=== PATIENT | male | born 1955 | race African-American/Black ===

== ENCOUNTER 2017-07-20 19:26 | Observation (INO) | payer MEDICAID, MEDICARE, OTHER ==
[~2017-07-20] VITALS: Ht 182.9 cm; Wt 72.1 kg
[~2017-07-20 19:26] MED LIST: ATEN-104 PO; NITR0.4T; OXYC-302 PO; SIMV20TA3; VIT1TABL67
[2017-07-20] MEDS ORDERED: SODIUM CHLORIDE FLUSH 10ML SYR IVF ONE (20:30)
[2017-07-20] MEDS ORDERED: NITROGLYCERIN SINGLE TAB 0.4 MG SL PRN (20:30)
[2017-07-20] MEDS ORDERED: ASPIRIN 81 MG TABLET CHEW PO ONE (20:30)
[2017-07-20 20:32] LABS: HEMATOCRIT 38.4 % (39.2-51.8); HEMOGLOBIN 12.4 g/dL (13.7-18.0); WHITE BLOOD COUNT 7.6 x10^3/uL (3.4-10)
[2017-07-20 20:34] LABS: ASPARTATE AMINO TRANSFERASE 15 U/L (15-37); BLOOD UREA NITROGEN 13 mg/dL (7-18)
[2017-07-20 20:40] LABS: IS PT STATUS REG ER OR PRE ER? YES
[2017-07-20] MEDS ORDERED: NITROGLYCERIN SINGLE TAB 0.4 MG SL ONE (20:42)
[2017-07-20] MEDS ORDERED: OXYcodone/APAP 5/325MG TABLET PO ONE (23:30)
[2017-07-20] MEDS ORDERED: OXYcodone/APAP 5/325MG TABLET ONE (23:55)
[2017-07-21] MEDS ORDERED: ONDANSETRON ODT 4 MG PO PRN (00:30)
[2017-07-21] MEDS ORDERED: LABETALOL 5MG/ML, 20ML IVPush PRN (00:30)
[2017-07-21] MEDS ORDERED: NITROGLYCERIN 0.4 MG BOTTLE (25 TABS) SL PRN (00:30)
[2017-07-21] MEDS ORDERED: DOCUSATE 100 MG CAPSULE PO PRN (00:30)
[2017-07-21] MEDS ORDERED: TEMAZEPAM 15 MG CAPSULE PO PRN (00:30)
[2017-07-21] MEDS ORDERED: OMNIPAQUE 350 MG/ML, 100ML BOTTLE ONE (01:05)
[2017-07-21 02:00] VITALS: BP 111/70
[2017-07-21] MEDS: HEPARIN 5,000 UNITS/ML, 1ML SQ SCH ×2 (02:22→10:00)
[2017-07-21 02:30] LABS: IS PT STATUS REG ER OR PRE ER? NO
[2017-07-21] MEDS ORDERED: TAMS0.4C2 PO (04:56)
[2017-07-21] MEDS ORDERED: ATOR10TA9 PO (04:56)
[2017-07-21] MEDS ORDERED: CYCL5TAB PO (04:56)
[2017-07-21] MEDS ORDERED: OXYcodone/APAP 5/325MG TABLET PO PRN (08:00)
[2017-07-21 08:12] VITALS: BP 106/68
[2017-07-21 08:17] LABS: IS PT STATUS REG ER OR PRE ER? NO
[2017-07-21] MEDS ORDERED: ATENOLOL 50 MG TABLET PO SCH (09:00)
[2017-07-21] MEDS ORDERED: POTASSIUM CHLORIDE 20 MEQ TAB.ER.PRT PO ONE (10:00)
[2017-07-21 14:00] VITALS: BP 124/72
[2017-07-21] MEDS ORDERED: NITR12SP PO (14:10)
== END 2017-07-21 15:15 | disposition home or self-care (01) ==
LOC: ED 19:56 → EDIP 23:53 → INTOOBSV 23:53 → 5SO 07-21 01:50
PROVIDERS: ADMIT Family Medicine; ATTEND Family Medicine
DX: R07.9 Chest pain, unspecified (principal); E87.6 Hypokalemia; J44.9 Chronic obstructive pulmonary disease, unspecified; R79.1 Abnormal coagulation profile; E78.00 Pure hypercholesterolemia, unspecified; E78.5 Hyperlipidemia, unspecified; F17.200 Nicotine dependence, unspecified, uncomplicated; I10 Essential (primary) hypertension; I21.3 ST elevation (STEMI) myocardial infarction of unspecified site; I25.10 Atherosclerotic heart disease of native coronary artery without angina pectoris; I25.2 Old myocardial infarction; Z90.49 Acquired absence of other specified parts of digestive tract; Z82.49 Family history of ischemic heart disease and other diseases of the circulatory system
CPT/HCPCS: 36415; 71010; 71275; 80053; 83690; 84484; 85025; 85379; 85610; 85730; 93005; 93306; 96372; 99285; G0378; J1644; Q9967

== ENCOUNTER 2017-08-14 16:31 | Emergency (ER) | payer MEDICAID ==
[~2017-08-14] VITALS: Ht 182.9 cm; Wt 75.1 kg
[~2017-08-14 16:31] MED LIST changes: +ATOR10TA9 PO; +CYCL5TAB PO; +NITR12SP PO; +TAMS0.4C2 PO
[2017-08-14 16:32] VITALS: BP 132/80
[2017-08-14] MEDS ORDERED: ALPR1TAB2 PO (16:58)
== END 2017-08-14 17:49 | disposition home or self-care (01) ==
LOC: ED 17:43
DX: M51.36 Other intervertebral disc degeneration, lumbar region (principal); M54.6 Pain in thoracic spine; I10 Essential (primary) hypertension; I25.2 Old myocardial infarction; E78.00 Pure hypercholesterolemia, unspecified
CPT/HCPCS: 72110; 99284

== ENCOUNTER 2017-08-19 16:48 | Emergency (ER) | payer MEDICARE, MEDICAID ==
[~2017-08-19] VITALS: Ht 182.9 cm; Wt 75.7 kg
[~2017-08-19 16:48] MED LIST changes: +ALPR1TAB2 PO
[2017-08-19 16:50] VITALS: BP 118/81
[2017-08-19] MEDS ORDERED: OXYcodone/APAP 5/325MG TABLET PO ONE (17:00)
[2017-08-19] MEDS ORDERED: KETOROLAC 30 MG/1 ML IM ONE (18:00)
[2017-08-19] MEDS ORDERED: KETOROLAC 30 MG/1 ML ONE (18:03)
== END 2017-08-19 18:29 | disposition home or self-care (01) ==
LOC: ED 18:00
DX: S39.012A Strain of muscle, fascia and tendon of lower back, initial encounter (principal); I10 Essential (primary) hypertension; G89.29 Other chronic pain; M54.9 Dorsalgia, unspecified; E78.00 Pure hypercholesterolemia, unspecified; Z87.891 Personal history of nicotine dependence; X58.XXXA Exposure to other specified factors, initial encounter; Y93.89 Activity, other specified; Y99.8 Other external cause status; Y92.89 Other specified places as the place of occurrence of the external cause
CPT/HCPCS: 96372; 99283; J1885

== ENCOUNTER 2017-09-16 23:19 | Emergency (ER) | payer MEDICAID ==
[~2017-09-16] VITALS: Ht 170.2 cm; Wt 71.9 kg
[2017-09-16 23:21] VITALS: BP 136/77
[2017-09-16] MEDS ORDERED: TRAM50TA2 PO (23:57)
[2017-09-17] MEDS ORDERED: IBUPROFEN 200 MG TABLET PO ONE (01:00)
[2017-09-17] MEDS ORDERED: IBUPROFEN 200 MG TABLET ONE (01:01)
== END 2017-09-17 01:13 | disposition home or self-care (01) ==
LOC: ED 23:59
DX: S50.02XA Contusion of left elbow, initial encounter (principal); G89.11 Acute pain due to trauma; X58.XXXA Exposure to other specified factors, initial encounter; Y93.89 Activity, other specified; Y92.89 Other specified places as the place of occurrence of the external cause; Y99.8 Other external cause status
CPT/HCPCS: 99284

== ENCOUNTER → 2017-09-18 | Outpatient (CLI) | payer MEDICAID, MEDICARE ==
[~2017-09-18] MED LIST changes: +TRAM50TA2 PO
== END | disposition home or self-care (01) ==
LOC: RAD 16:17
PROVIDERS: ATTEND Physical Medicine & Rehabilitation
DX: M51.16 Intervertebral disc disorders with radiculopathy, lumbar region (principal); M51.27 Other intervertebral disc displacement, lumbosacral region; M47.896 Other spondylosis, lumbar region; M47.897 Other spondylosis, lumbosacral region; M48.061 Spinal stenosis, lumbar region without neurogenic claudication; M48.07 Spinal stenosis, lumbosacral region; M79.604 Pain in right leg
CPT/HCPCS: 72148

== ENCOUNTER 2018-07-23 18:05 | Emergency (ER) | payer MEDICAID ==
[~2018-07-23] VITALS: Ht 182.9 cm; Wt 70.0 kg
[2018-07-23 18:13] VITALS: BP 121/71
[2018-07-23] MEDS ORDERED: LIDOCAINE-MPF 1%, 5ML INFIL ONE (18:30)
[2018-07-23] MEDS ORDERED: DIPH,PERTUSS(ACELL),TET VAC/PF 0.5 ML IM-VACC ONE ×2 (18:30)
[2018-07-23] MEDS ORDERED: LIDOCAINE-MPF 1%, 5ML ONE (18:30)
[2018-07-23] MEDS ORDERED: BACITRACIN ZINC OINT 500U/GM, 0.9 GM ONE (19:10)
== END 2018-07-23 19:21 | disposition home or self-care (01) ==
LOC: ED 19:15
DX: S61.210A Laceration without foreign body of right index finger without damage to nail, initial encounter (principal); G89.29 Other chronic pain; I25.2 Old myocardial infarction; E78.00 Pure hypercholesterolemia, unspecified; W26.0XXA Contact with knife, initial encounter; Y93.89 Activity, other specified; Y92.009 Unspecified place in unspecified non-institutional (private) residence as the place of occurrence of the external cause; Y99.8 Other external cause status
CPT/HCPCS: 90471; 90715; 99284

== ENCOUNTER 2018-07-28 12:23 | Emergency (ER) | payer MEDICAID, MEDICARE ==
[~2018-07-28] VITALS: Ht 182.9 cm; Wt 69.4 kg
[2018-07-28 12:42] VITALS: BP 113/73
[2018-07-28 14:15] LABS: MICROSCOPIC AUTO
== END 2018-07-28 15:24 | disposition home or self-care (01) ==
LOC: ED 14:24
DX: S80.02XA Contusion of left knee, initial encounter (principal); R31.29 Other microscopic hematuria; I10 Essential (primary) hypertension; E78.00 Pure hypercholesterolemia, unspecified; I25.2 Old myocardial infarction; F17.200 Nicotine dependence, unspecified, uncomplicated; D57.3 Sickle-cell trait; X58.XXXA Exposure to other specified factors, initial encounter; Y93.89 Activity, other specified; Y92.89 Other specified places as the place of occurrence of the external cause; Y99.8 Other external cause status
CPT/HCPCS: 81001; 99285

== ENCOUNTER 2018-10-27 15:34 | Emergency (ER) | payer MEDICARE, MEDICAID ==
[~2018-10-27] VITALS: Ht 182.9 cm; Wt 72.8 kg
[2018-10-27 15:42] VITALS: BP 119/63
== END 2018-10-27 16:52 | disposition home or self-care (01) ==
LOC: ED 16:15
DX: J06.9 Acute upper respiratory infection, unspecified (principal); I25.2 Old myocardial infarction; I10 Essential (primary) hypertension; E78.00 Pure hypercholesterolemia, unspecified
CPT/HCPCS: 71046; 93005; 99283

== ENCOUNTER 2018-11-17 02:19 | Emergency (ER) | payer MEDICARE, MEDICAID ==
[~2018-11-17] VITALS: Ht 182.9 cm; Wt 73.6 kg
[2018-11-17 02:35] VITALS: BP 114/71
[2018-11-17] MEDS ORDERED: OXYcodone/APAP 10/325MG TABLET PO ONE (03:00)
[2018-11-17] MEDS ORDERED: KETOROLAC 30 MG/1 ML IM ONE (03:00)
[2018-11-17] MEDS ORDERED: KETOROLAC 30 MG/1 ML ONE (03:05)
[2018-11-17] MEDS ORDERED: OXYcodone/APAP 10/325MG TABLET ONE (03:06)
== END 2018-11-17 04:16 | disposition home or self-care (01) ==
LOC: ED 04:10
DX: G89.29 Other chronic pain (principal); M54.5 Low back pain; E78.00 Pure hypercholesterolemia, unspecified; I10 Essential (primary) hypertension; F17.200 Nicotine dependence, unspecified, uncomplicated
CPT/HCPCS: 96372; 99283; J1885

== ENCOUNTER 2018-11-22 00:20 | Emergency (ER) | payer MEDICARE, MEDICAID ==
[~2018-11-22] VITALS: Ht 182.9 cm; Wt 73.6 kg
[2018-11-22 00:21] VITALS: BP 125/76
[2018-11-22] MEDS ORDERED: METHOCARBAMOL 750 MG TABLET ONE (00:52)
[2018-11-22] MEDS ORDERED: KETOROLAC 30 MG/1 ML ONE (00:52)
[2018-11-22] MEDS ORDERED: OXYcodone/APAP 5/325MG TABLET ONE (00:53)
[2018-11-22] MEDS ORDERED: OXYcodone/APAP 5/325MG TABLET PO ONE (01:00)
[2018-11-22] MEDS ORDERED: KETOROLAC 30 MG/1 ML IM ONE (01:00)
[2018-11-22] MEDS ORDERED: METHOCARBAMOL 750 MG TABLET PO ONE (01:00)
[2018-11-22] MEDS ORDERED: SERT100T5 PO (01:08)
[2018-11-22] MEDS ORDERED: GABA300C PO (01:08)
[2018-11-22] MEDS ORDERED: CYCL5TAB PO (01:08)
[2018-11-22] MEDS ORDERED: OXYC5CAP2 PO (01:08)
[2018-11-22] MEDS ORDERED: TIZA4TAB PO (01:08)
[2018-11-22] MEDS ORDERED: OXYC-307 PO (01:08)
== END 2018-11-22 01:46 | disposition home or self-care (01) ==
LOC: ED 00:44
DX: S39.012A Strain of muscle, fascia and tendon of lower back, initial encounter (principal); M51.36 Other intervertebral disc degeneration, lumbar region; E78.00 Pure hypercholesterolemia, unspecified; I10 Essential (primary) hypertension; I25.2 Old myocardial infarction; F17.200 Nicotine dependence, unspecified, uncomplicated; Z88.6 Allergy status to analgesic agent; X58.XXXA Exposure to other specified factors, initial encounter; Y93.89 Activity, other specified; Y92.89 Other specified places as the place of occurrence of the external cause; Y99.8 Other external cause status
CPT/HCPCS: 96372; 99283; J1885

== ENCOUNTER 2018-12-01 20:22 | Emergency (ER) | payer MEDICARE, MEDICAID ==
[~2018-12-01] VITALS: Ht 185.4 cm; Wt 80.0 kg
[~2018-12-01 20:22] MED LIST changes: +GABA300C PO; +OXYC-307 PO; +OXYC5CAP2 PO; +SERT100T5 PO; +TIZA4TAB PO
--- NOTE | 2018-12-01 21:13 | NUR ---
PT HERE FOR COUGH AND CHEST PAIN WITH CONGESTION. PT SAYS HE HAS HAD COUGH FOR AWHILE. COUGH IS DRY AND NOT PRODUCTIVE. VSS. LAB AT BEDSIDE. CALL LIGHT IN REACH
[2018-12-01 21:20] LABS: BASOPHILS # (AUTO) 0.07 x10^3/uL (0-0.1); BASOPHILS % (AUTO) 1 % (0-1); EOSINOPHILS # (AUTO) 0.41 x10^3/uL (0-0.4); EOSINOPHILS % (AUTO) 5 % (1-7); LYMPHOCYTES # (AUTO) 2.94 x10^3/uL (1-3.4); LYMPHOCYTES % (AUTO) 34 % (22-44); MD NO; MEAN CORPUSCULAR HEMOGLOBIN 26.4 pg (27.5-34.5); MEAN CORPUSCULAR HGB CONC 32.6 g/dL (33.2-36.2); MEAN CORPUSCULAR VOLUME 81.1 fL (81-97); MEAN PLATELET VOLUME 7.9 fL (7.4-10.4); MONOCYTES # (AUTO) 0.61 x10^3/uL (0.2-0.8); MONOCYTES % (AUTO) 7 % (2-9); NEUTROPHILS # (AUTO) 4.74 x10^3/uL (1.8-6.8); NEUTROPHILS % (AUTO) 54 % (42-75); PLATELET COUNT 309 x10^3/uL (130-400); RED BLOOD COUNT 5.38 x10^6/uL (4.38-5.82); RED CELL DISTRIBUTION WIDTH 16.9 % (9.4-14.8)
[2018-12-01 21:34] LABS: ALANINE AMINOTRANSFERASE 13 U/L (12-78); ALBUMIN 3.3 g/dL (3.4-5.0); ANION GAP 7 mmol/L (5-15); CALCIUM 8.6 mg/dL (8.5-10.1); CHLORIDE 111 mmol/L (98-107); CREATININE 1.02 mg/dL (0.7-1.3)
[2018-12-01 21:39] LABS: ALKALINE PHOSPHATASE 106 U/L (45-117); BILIRUBIN,TOTAL 0.4 mg/dL (0.2-1.0); TROPONIN I < 0.015 ng/mL (0.000-0.045)
[2018-12-01 21:58] VITALS: BP 115/72
--- NOTE | 2018-12-01 21:59 | NUR ---
Patient given discharge instructions and they have confirmed that they understand the instructions. Patient ambulatory with steady gait.
== END 2018-12-01 22:01 | disposition home or self-care (01) ==
LOC: ED 21:45
DX: J20.9 Acute bronchitis, unspecified (principal); I10 Essential (primary) hypertension; I25.2 Old myocardial infarction
CPT/HCPCS: 36415; 71045; 80053; 84484; 85025; 93005; 99284

== ENCOUNTER 2019-05-02 15:05 | Emergency (ER) | payer MEDICARE, MEDICAID ==
[~2019-05-02] VITALS: Ht 182.9 cm; Wt 72.0 kg
[~2019-05-02 15:05] MED LIST changes: -NITR0.4T; +NITR0.4T41; +SERT100T32 PO; -SERT100T5 PO
[2019-05-02 15:11] VITALS: BP 117/74
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
--- NOTE | 2019-05-02 16:11 | NUR ---
PT RESTING ON GURNEY. PT CLOSES DOOR TO TALK ON CELL PHONE. NO ACUTE DISTRESS NOTED.
--- NOTE | 2019-05-02 16:42 | NUR ---
Patient/Caregiver given discharge instructions and they have confirmed that they understand the instructions. Patient ambulatory with steady gait. PT LEFT WITH ALL PERSONAL BELONGINGS.
== END 2019-05-02 16:44 | disposition home or self-care (01) ==
LOC: ED 16:33
DX: S61.439A Puncture wound without foreign body of unspecified hand, initial encounter (principal); I10 Essential (primary) hypertension; J45.909 Unspecified asthma, uncomplicated; I25.2 Old myocardial infarction; E78.00 Pure hypercholesterolemia, unspecified; F17.200 Nicotine dependence, unspecified, uncomplicated; W46.0XXA Contact with hypodermic needle, initial encounter; Y93.89 Activity, other specified; Y92.89 Other specified places as the place of occurrence of the external cause; Y99.8 Other external cause status
CPT/HCPCS: 36415; 86705; 86706; 86803; 87340; 87806; 99283; G0475

== ENCOUNTER 2019-07-20 13:16 | Emergency (ER) | payer MEDICARE, MEDICAID ==
[~2019-07-20] VITALS: Ht 182.9 cm; Wt 73.9 kg
[2019-07-20 13:39] VITALS: BP 104/66
== END 2019-07-20 14:49 | disposition home or self-care (01) ==
LOC: ED 14:48
DX: S90.32XA Contusion of left foot, initial encounter (principal); I25.2 Old myocardial infarction; E78.00 Pure hypercholesterolemia, unspecified; I10 Essential (primary) hypertension; G89.29 Other chronic pain
CPT/HCPCS: 99283

== ENCOUNTER 2019-11-04 20:33 | Emergency (ER) | payer MEDICARE, MEDICAID ==
[~2019-11-04] VITALS: Ht 182.9 cm; Wt 80.0 kg
[~2019-11-04 20:33] MED LIST changes: -TIZA4TAB PO; +TIZA4TAB2 PO
[2019-11-04 20:43] VITALS: BP 133/73
[2019-11-04] MEDS ORDERED: KETOROLAC 30 MG/1 ML ONE (21:10)
[2019-11-04] MEDS ORDERED: KETOROLAC 30 MG/1 ML IM ONE (21:30)
== END 2019-11-04 21:31 | disposition home or self-care (01) ==
LOC: ED 21:00
DX: M54.5 Low back pain (principal); G89.29 Other chronic pain; R05 Cough; I10 Essential (primary) hypertension; J45.909 Unspecified asthma, uncomplicated; I25.2 Old myocardial infarction; F17.210 Nicotine dependence, cigarettes, uncomplicated
CPT/HCPCS: 71045; 96372; 99283; J1885

== ENCOUNTER 2019-12-13 11:35 | Emergency (ER) | payer MEDICAID, MEDICARE ==
[~2019-12-13] VITALS: Ht 182.9 cm; Wt 79.2 kg
[2019-12-13 11:50] VITALS: BP 123/72
[2019-12-13] MEDS ORDERED: DEXAMETHASONE 4 MG TABLET ONE (12:14)
[2019-12-13] MEDS ORDERED: ALBUTEROL/IPRATROPIUM 2.5MG/0.5MG, 3 ML ONE ×2 (12:30→12:42)
[2019-12-13] MEDS ORDERED: DEXAMETHASONE 4 MG TABLET PO ONE (12:30)
[2019-12-13] MEDS ORDERED: ALBUTEROL/IPRATROPIUM 2.5MG/0.5MG, 3 ML NPPB ONE (12:30)
--- NOTE | 2019-12-13 13:08 | NUR ---
breathing tx completed, pt reports improvement of sx s/p tx. pt a&o, resps even and unlabored, nadn. pt tolerating po's well with no s/sx aspiration. pt given dc instructions and script, educated regarding dc rx for zithromax and albuterol. pt amb to dc desk with steady gait, nadn at dc.
== END 2019-12-13 13:09 | disposition home or self-care (01) ==
LOC: ED 12:25
DX: J06.9 Acute upper respiratory infection, unspecified (principal); I10 Essential (primary) hypertension; J45.909 Unspecified asthma, uncomplicated; I25.2 Old myocardial infarction; F17.200 Nicotine dependence, unspecified, uncomplicated; G89.29 Other chronic pain
CPT/HCPCS: 71046; 94640; 99283; J7620

== ENCOUNTER 2020-01-06 12:06 | Outpatient (CLI) | payer MEDICARE, MEDICAID ==
[~2020-01-06 12:06] MED LIST changes: +SIMV20TA19; -SIMV20TA3
[2020-01-06 12:21] LABS: BASOPHILS # (AUTO) 0.05 x10^3/uL (0-0.1); BASOPHILS % (AUTO) 1 % (0-1); EOSINOPHILS # (AUTO) 0.51 x10^3/uL (0-0.4); EOSINOPHILS % (AUTO) 7 % (1-7); LYMPHOCYTES # (AUTO) 2.71 x10^3/uL (1-3.4); LYMPHOCYTES % (AUTO) 35 % (22-44); MD NO; MEAN CORPUSCULAR HEMOGLOBIN 26.7 pg (27.5-34.5); MEAN CORPUSCULAR HGB CONC 32.6 g/dL (33.2-36.2); MEAN CORPUSCULAR VOLUME 81.8 fL (81-97); MEAN PLATELET VOLUME 7.9 fL (7.4-10.4); MONOCYTES # (AUTO) 0.67 x10^3/uL (0.2-0.8); MONOCYTES % (AUTO) 9 % (2-9); NEUTROPHILS # (AUTO) 3.81 x10^3/uL (1.8-6.8); NEUTROPHILS % (AUTO) 49 % (42-75); PLATELET COUNT 299 x10^3/uL (130-400); RED BLOOD COUNT 5.44 x10^6/uL (4.38-5.82); RED CELL DISTRIBUTION WIDTH 15.8 % (9.4-14.8)
[2020-01-06 12:32] LABS: ALANINE AMINOTRANSFERASE 9 U/L (12-78); ALBUMIN 3.4 g/dL (3.4-5.0); ANION GAP 6 mmol/L (5-15); CALCIUM 8.5 mg/dL (8.5-10.1); CHLORIDE 112 mmol/L (98-107); CREATININE 1.04 mg/dL (0.7-1.3)
[2020-01-06 12:34] LABS: ALKALINE PHOSPHATASE 104 U/L (45-117); BILIRUBIN,TOTAL 0.7 mg/dL (0.2-1.0); CHOLESTEROL, TOTAL 145 mg/dL (140-239); HDL CHOL % 33 % (26-37); HDL CHOLESTEROL (DIRECT) 48 mg/dL (40-60); LDL CHOLESTEROL,CALCULATED 87 mg/dL (54-169); LDL/HDL RATIO 1.8 (0.5-3.0); TOTAL PROTEIN 7.5 g/dL (6.4-8.2); TRIGLYCERIDES 51 mg/dL (50-200); VLDL CHOLESTEROL 10 mg/dL (0-25)
== END 2020-01-06 23:59 | disposition home or self-care (01) ==
LOC: LAB 12:06
PROVIDERS: ATTEND Family Medicine
DX: I25.10 Atherosclerotic heart disease of native coronary artery without angina pectoris (principal); F41.8 Other specified anxiety disorders; E78.5 Hyperlipidemia, unspecified; I10 Essential (primary) hypertension; F17.200 Nicotine dependence, unspecified, uncomplicated
CPT/HCPCS: 36415; 80053; 80061; 83036; 85025

== ENCOUNTER 2020-02-22 09:59 | Emergency (ER) | payer MEDICAID, MEDICARE ==
[~2020-02-22] VITALS: Ht 182.9 cm; Wt 79.9 kg
--- NOTE | 2020-02-22 10:10 | NUR ---
PATIENT ARRIVES WITH A COUGH AND CONGESTION, SOME PAIN CHEST FROM COUGHING. WAS SEEN HERE 3 WEEKS AGO SAME.
[2020-02-22] MEDS ORDERED: DEXAMETHASONE 4 MG TABLET PO ONE (10:30)
[2020-02-22] MEDS ORDERED: DEXAMETHASONE 4 MG TABLET ONE (10:42)
[2020-02-22 11:53] VITALS: BP 127/69
== END 2020-02-22 11:55 | disposition home or self-care (01) ==
LOC: ED 10:19
DX: B34.9 Viral infection, unspecified (principal); I10 Essential (primary) hypertension; E78.00 Pure hypercholesterolemia, unspecified; J45.909 Unspecified asthma, uncomplicated
CPT/HCPCS: 71045; 99283

== ENCOUNTER 2020-03-23 15:39 | Emergency (ER) | payer MEDICARE, MEDICAID ==
[~2020-03-23] VITALS: Ht 182.9 cm; Wt 78.4 kg
[2020-03-23 15:44] VITALS: BP 115/68
[2020-03-23] MEDS ORDERED: FLUORESCEIN OPHTHALMIC 1 MG STRIP ONE (16:09)
[2020-03-23] MEDS ORDERED: PROPARACAINE OPHTH 0.5%, 15ML ONE (16:09)
[2020-03-23] MEDS ORDERED: PROPARACAINE OPHTH 0.5%, 15ML EACHEYE ONE (16:30)
[2020-03-23] MEDS ORDERED: FLUORESCEIN OPHTHALMIC 1 MG STRIP EACHEYE ONE (16:30)
--- NOTE | 2020-03-23 16:38 | NUR ---
TASK RN: Patient/Caregiver given discharge instructions and they have confirmed that they understand the instructions. Patient ambulatory with steady gait.
== END 2020-03-23 16:39 | disposition home or self-care (01) ==
LOC: ED 16:00
DX: H10.021 Other mucopurulent conjunctivitis, right eye (principal); R51 Headache; R09.89 Other specified symptoms and signs involving the circulatory and respiratory systems; F17.200 Nicotine dependence, unspecified, uncomplicated; J45.909 Unspecified asthma, uncomplicated; I10 Essential (primary) hypertension; I25.2 Old myocardial infarction; E78.00 Pure hypercholesterolemia, unspecified
CPT/HCPCS: 99283

== ENCOUNTER 2020-06-12 13:18 | Emergency (ER) | payer MEDICARE, MEDICAID ==
[~2020-06-12] VITALS: Ht 182.9 cm; Wt 78.0 kg
[2020-06-12] MEDS ORDERED: LIDOCAINE 1%-EPI 1:100K, 20ML INFIL ONE (13:30)
[2020-06-12] MEDS ORDERED: PLEASE ENTER HEIGHT AND WEIGHT MC SCH (13:32)
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
[2020-06-12] MEDS ORDERED: LIDOCAINE 1%-EPI 1:100K, 20ML ONE (13:38)
--- NOTE | 2020-06-12 14:09 | NUR ---
pt's ginger updated by phone with pt's permission. number [phone]
--- NOTE | 2020-06-12 15:40 | NUR ---
PT SLEEPING IN [facility]. RESPS EVEN AND UNLABORED. ALL MONITORS IN PLACE. CALL LIGHT WITHIN REACH.
[2020-06-12 16:43] LABS: BASOPHILS # (AUTO) 0.02 x10^3/uL (0-0.1); BASOPHILS % (AUTO) 0 % (0-1); EOSINOPHILS # (AUTO) 0.06 x10^3/uL (0-0.4); EOSINOPHILS % (AUTO) 1 % (1-7); LYMPHOCYTES # (AUTO) 1.11 x10^3/uL (1-3.4); LYMPHOCYTES % (AUTO) 15 % (22-44); MD NO; MEAN CORPUSCULAR HEMOGLOBIN 26.1 pg (27.5-34.5); MEAN CORPUSCULAR HGB CONC 32.4 g/dL (33.2-36.2); MEAN CORPUSCULAR VOLUME 80.5 fL (81-97); MEAN PLATELET VOLUME 8.2 fL (7.4-10.4); MONOCYTES # (AUTO) 0.92 x10^3/uL (0.2-0.8); MONOCYTES % (AUTO) 12 % (2-9); NEUTROPHILS % (AUTO) 72 % (42-75); PLATELET COUNT 287 x10^3/uL (130-400); RED BLOOD COUNT 5.69 x10^6/uL (4.38-5.82); RED CELL DISTRIBUTION WIDTH 15.9 % (9.4-14.8)
[2020-06-12 16:47] LABS: ALANINE AMINOTRANSFERASE 14 U/L (12-78); ALBUMIN 3.6 g/dL (3.4-5.0); ANION GAP 6 mmol/L (5-15); CALCIUM 8.3 mg/dL (8.5-10.1); CHLORIDE 109 mmol/L (98-107); CREATININE 1.03 mg/dL (0.7-1.3)
[2020-06-12 16:50] LABS: ALKALINE PHOSPHATASE 124 U/L (45-117); TOTAL PROTEIN 7.9 g/dL (6.4-8.2)
--- NOTE | 2020-06-12 16:58 | NUR ---
PT RESTING IN [facility]. PT'S AOX4. RESPS EVEN AND UNLABORED. ALL MONITORS IN PLACE. CALL LIGHT WITHIN REACH.
[2020-06-12 17:01] VITALS: BP 115/59
--- NOTE | 2020-06-12 17:20 | NUR ---
Brian Rodgers [phone]
--- NOTE | 2020-06-12 18:04 | NUR ---
Patient given discharge instructions and they have confirmed that they understand the instructions. Patient ambulatory with steady gait.
== END 2020-06-12 18:04 | disposition home or self-care (01) ==
LOC: ED 16:15
DX: S01.01XA Laceration without foreign body of scalp, initial encounter (principal); S09.90XA Unspecified injury of head, initial encounter; R55 Syncope and collapse; R42 Dizziness and giddiness; M54.2 Cervicalgia; I10 Essential (primary) hypertension; J45.909 Unspecified asthma, uncomplicated; G89.29 Other chronic pain; I25.2 Old myocardial infarction; E78.00 Pure hypercholesterolemia, unspecified; W22.8XXA Striking against or struck by other objects, initial encounter; Y93.89 Activity, other specified; Y92.89 Other specified places as the place of occurrence of the external cause; Y99.8 Other external cause status
CPT/HCPCS: 12032; 36415; 70450; 72125; 80053; 85025; 93005; 99285

== ENCOUNTER 2020-06-22 17:45 | Emergency (ER) | payer MEDICARE, MEDICAID ==
[~2020-06-22] VITALS: Ht 182.9 cm; Wt 75.0 kg
[2020-06-22 17:49] VITALS: BP 110/69
--- NOTE | 2020-06-22 18:37 | NUR ---
EXCHANGE SPECIALIST: PT AMBULATORY TO ROOM FROM LOBBY.
--- NOTE | 2020-06-22 18:52 | NUR ---
Report received from JENNA Hernandez. This RN to assume care.
== END 2020-06-22 20:05 | disposition home or self-care (01) ==
LOC: ED 19:15
DX: S01.01XD Laceration without foreign body of scalp, subsequent encounter (principal); J45.909 Unspecified asthma, uncomplicated; I10 Essential (primary) hypertension; I25.2 Old myocardial infarction; E78.00 Pure hypercholesterolemia, unspecified; X58.XXXD Exposure to other specified factors, subsequent encounter
CPT/HCPCS: 99281

== ENCOUNTER → 2020-10-11 | Outpatient (CLI) | payer MEDICARE, MEDICAID ==
[2020-10-11 14:19] LABS: BASOPHILS % (AUTO) 1 % (0-1); EOSINOPHILS % (AUTO) 5 % (1-7); LYMPHOCYTES % (AUTO) 42 % (22-44); MEAN CORPUSCULAR HEMOGLOBIN 26.5 pg (27.5-34.5); MEAN CORPUSCULAR HGB CONC 33.3 g/dL (33.2-36.2); MEAN PLATELET VOLUME 7.6 fL (7.4-10.4); MONOCYTES % (AUTO) 8 % (2-9); NEUTROPHILS % (AUTO) 45 % (42-75); PLATELET COUNT 336 x10^3/uL (130-400); RED BLOOD COUNT 5.66 x10^6/uL (4.38-5.82); RED CELL DISTRIBUTION WIDTH 15.9 % (9.4-14.8)
[2020-10-11 14:20] LABS: MD NO
[2020-10-11 14:25] LABS: ALANINE AMINOTRANSFERASE 10 U/L (12-78); ALBUMIN 3.8 g/dL (3.4-5.0); ANION GAP 6 mmol/L (5-15); CALCIUM 9.5 mg/dL (8.5-10.1); CHLORIDE 108 mmol/L (98-107); CREATININE 0.95 mg/dL (0.7-1.3)
[2020-10-11 14:29] LABS: ALKALINE PHOSPHATASE 112 U/L (45-117); BILIRUBIN,TOTAL 0.5 mg/dL (0.2-1.0)
== END | disposition home or self-care (01) ==
LOC: LAB 13:17
PROVIDERS: ATTEND Family Medicine
DX: Z00.01 Encounter for general adult medical examination with abnormal findings (principal); D57.3 Sickle-cell trait
CPT/HCPCS: 36415; 80053; 85025; G0103

== ENCOUNTER 2021-05-23 16:28 | Emergency (ER) | payer MEDICARE, MEDICAID ==
[~2021-05-23] VITALS: Ht 182.9 cm; Wt 76.8 kg
[~2021-05-23 16:28] MED LIST changes: -OXYC-302 PO; -OXYC-307 PO; +OXYC-380 PO; +OXYC1TAB14 PO
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
--- NOTE | 2021-05-23 19:33 | NUR ---
orthotics assistant: Pt ambulatory to room from lobby at this time.
[2021-05-23 20:04] LABS: MICROSCOPIC INDICATED
[2021-05-23] MEDS ORDERED: METHOCARBAMOL 750 MG TABLET ONE (20:40)
[2021-05-23 20:56] VITALS: BP 125/72
[2021-05-23] MEDS ORDERED: METHOCARBAMOL 750 MG TABLET PO ONE (21:00)
--- NOTE | 2021-05-23 21:20 | NUR ---
Patient given discharge instructions and they have confirmed that they understand the instructions. Patient ambulatory with steady gait.
== END 2021-05-23 21:21 | disposition home or self-care (01) ==
LOC: ED 17:00
DX: S16.1XXA Strain of muscle, fascia and tendon at neck level, initial encounter (principal); M54.5 Low back pain; G43.909 Migraine, unspecified, not intractable, without status migrainosus; V49.19XA Passenger injured in collision with other motor vehicles in nontraffic accident, initial encounter; Y93.89 Activity, other specified; Y92.009 Unspecified place in unspecified non-institutional (private) residence as the place of occurrence of the external cause; Y99.8 Other external cause status
CPT/HCPCS: 72020; 72110; 81001; 87086; 99284

== ENCOUNTER 2021-05-24 10:47 | Emergency (ER) | payer MEDICAID, MEDICARE ==
[~2021-05-24] VITALS: Ht 182.9 cm; Wt 76.7 kg
--- NOTE | 2021-05-24 13:56 | NUR ---
BINDER CUTTER HAND: ATTEMPT TO ROOM PT, NIL AT THIS TIME.
--- NOTE | 2021-05-24 14:18 | NUR ---
skip locator: Pt ambulatory to room from lobby at this time.
--- NOTE | 2021-05-24 14:25 | NUR ---
PT AMBULATED TO ROOM FROM [facility]. PT HAD URINARY CATHETER PLACED 1 WEEK AGO FFOR RETENTIONS. PT STATED THAT HE MISSED A COUPLE DOSES OF HIS FLOMAX. PT HAS BEEN TAKING MEDICATION PRESCRIBED AND WANTS CATHETER TAKEN OUT.
[2021-05-24 14:30] VITALS: BP 131/74
--- NOTE | 2021-05-24 14:35 | NUR ---
URINARY CATHETER REMOVED PER MD ORDER. PT PROVIDED WATER AND URINAL. PT UNDERSTANDS THAT HE NEEDS TO URINATE BEFORE ABLE TO DISCAHRGE.
--- NOTE | 2021-05-24 16:15 | NUR ---
PT ABLE TO VOID A SMALL AMOUNT OF URINE. PT WANTING TO DISCHARGE. ER NOTIFIED
--- NOTE | 2021-05-24 16:40 | NUR ---
DISCHARGE INSTRUCTIONS REVIEWED WITH PT. ALL QUESTIONS ANSWERED AT THIS TIME.
== END 2021-05-24 16:47 | disposition home or self-care (01) ==
LOC: ED 14:30
DX: Z00.00 Encounter for general adult medical examination without abnormal findings (principal); I25.2 Old myocardial infarction; I10 Essential (primary) hypertension; F17.200 Nicotine dependence, unspecified, uncomplicated; E78.00 Pure hypercholesterolemia, unspecified; J45.909 Unspecified asthma, uncomplicated
CPT/HCPCS: 99281

== ENCOUNTER 2021-06-15 11:09 | Emergency (ER) | payer MEDICARE, MEDICAID ==
[~2021-06-15] VITALS: Ht 182.9 cm; Wt 77.0 kg
[2021-06-15] MEDS ORDERED: ONDANSETRON ODT 4 MG ONE (12:16)
[2021-06-15] MEDS ORDERED: HYDROmorphone 1 MG/ML, 1ML INJ ONE (12:16)
--- NOTE | 2021-06-15 12:21 | NUR ---
TRIGONOMETRY TEACHER PER MAR.
[2021-06-15] MEDS ORDERED: HYDROmorphone 1 MG/ML, 1ML INJ IM ONE (12:30)
[2021-06-15] MEDS ORDERED: ONDANSETRON ODT 4 MG PO ONE (12:30)
--- NOTE | 2021-06-15 13:59 | NUR ---
REPORT GIVEN TO [facility]. TRANSFER OF CARE AT THIS TIME.
--- NOTE | 2021-06-15 14:10 | NUR ---
PT LAYING RECLINED IN BED, RESPIRATIONS EVEN AND UNLABORED ON RA. PT MAKES PLEASANT CONVERSATION WITH STAFF. NAD NOTED AT THIS TIME. VSS. SIDE RAIL UP, CALL LIGHT IN REACH. CURRENTLY WAITING MRI.
--- NOTE | 2021-06-15 15:58 | NUR ---
PT RETURNED FROM MRI. PT LAYING BACK IN BED, NAD NOTED AT THIS TIME. RESPIRATIONS EVEN AND UNLABORED ON RA. PT REPORTS HUNGER, ASKS FOR PO NUTRITION. PT EDUCATED ON NEED FOR FULL IMAGING RESULTS. SIDE RAILS UP, CALL LIGHT IN REACH. PT WATCHING TELEVISION.
[2021-06-15 17:04] VITALS: BP 128/61
== END 2021-06-15 17:06 | disposition home or self-care (01) ==
LOC: ED 12:24
DX: S16.1XXA Strain of muscle, fascia and tendon at neck level, initial encounter (principal); M51.36 Other intervertebral disc degeneration, lumbar region; E78.00 Pure hypercholesterolemia, unspecified; J45.909 Unspecified asthma, uncomplicated; G89.29 Other chronic pain; I25.2 Old myocardial infarction; F17.210 Nicotine dependence, cigarettes, uncomplicated; V49.49XA Driver injured in collision with other motor vehicles in traffic accident, initial encounter; Y93.89 Activity, other specified; Y92.410 Unspecified street and highway as the place of occurrence of the external cause; Y99.8 Other external cause status
CPT/HCPCS: 72125; 72148; 96372; 99285; J1170; Q0162